=== PATIENT | female | born 1990 | race Two or more races ===

== ENCOUNTER 2025-04-05 19:24 | Emergency (ER) | payer OTHER ==
[~2025-04-05] VITALS: Ht 172.7 cm; Wt 115.9 kg
[~2025-04-05 19:24] MED LIST: ALBU18HF12 IH
[2025-04-05 20:06] LABS: BASOPHILS % (AUTO) 0.8 % (0.0-2.0); EOSINOPHILS % (AUTO) 2.3 % (1.0-6.0); HEMATOCRIT 39.8 % (36-46); HEMOGLOBIN 13.3 g/dL (12.0-16.0); LYMPHOCYTES # (AUTO) 2.4 K/uL (1.0-4.8); LYMPHOCYTES % (AUTO) 35.5 % (22.0-44.0); MEAN CORPUSCULAR HEMOGLOBIN 29.4 pg (26.0-34.0); MEAN CORPUSCULAR HGB CONC 33.3 G/dL (31.0-37.0); MEAN CORPUSCULAR VOLUME 88 fL (80-100); MONOCYTES # (AUTO) 0.6 K/uL (0.1-1.0); MONOCYTES % (AUTO) 9.7 % (2.0-9.0); NEUTROPHILS # (AUTO) 3.4 K/uL (1.8-7.7); NEUTROPHILS % (AUTO) 51.7 % (40.0-70.0); PLATELET COUNT (AUTO) 271 K/uL (150-450); RED BLOOD CELL COUNT(AUTO) 4.51 MIL/uL (4.00-5.20); RED CELL DISTRIBUTION WIDTH 14.7 % (11.5-14.5); WHITE BLOOD COUNT (AUTO) 6.6 K/uL (4.5-11.0)
[2025-04-05 20:11] VITALS: BP 113/71; PULSE 92; RESP 18; TEMP 98.2; O2SAT 100
[2025-04-05 20:17] LABS: ANION GAP 6 mmol/L (8-16); CALCIUM, TOTAL 8.7 mg/dL (8.8-10.5); CARBON DIOXIDE 29 mmol/L (22-29); CHLORIDE 103 mmol/L (98-107); CREATININE 0.64 mg/dL (0.60-1.30); GLOMERULAR FILTR. RATE CALC > 60 mL/min (>60); GLUCOSE,RANDOM 95 mg/dL (70-110); POTASSIUM 3.6 mmol/L (3.5-5.1); SODIUM SERUM 138 mmol/L (136-145); UREA NITROGEN, BLOOD 9 mg/dL (7-18)
[2025-04-05 20:21] LABS: ALBUMIN 3.3 g/dL (3.4-5.0); BILIRUBIN,DIRECT 0.1 mg/dL (0.00-0.20); BILIRUBIN,TOTAL 0.5 mg/dL (0.1-1.0); TOTAL PROTEIN, SERUM 6.9 g/dL (6.4-8.2)
[2025-04-05] MEDS: MAG HYDROX/ALUMINUM HYD/SIMETH 30 ML SUSPENSION UDCUP PO ONE (20:59)
[2025-04-05] MEDS: SODIUM CHLORIDE 0.9% 1,000 ML IV ONE (20:59)
[2025-04-05] MEDS: FAMOTIDINE 20 MG/2 ML VIAL IVP ONE (20:59)
[2025-04-05] MEDS: ONDANSETRON HCL 4 MG/2 ML VIAL IVP ONE (20:59)
[2025-04-05] MEDS ORDERED: ONDA-104 PO (21:11)
== END 2025-04-05 22:09 | disposition home or self-care (01) ==
LOC: EMS 19:24
DX: K52.9 Noninfective gastroenteritis and colitis, unspecified (principal); R11.2 Nausea with vomiting, unspecified; J45.909 Unspecified asthma, uncomplicated; F17.210 Nicotine dependence, cigarettes, uncomplicated
CPT/HCPCS: 99284; 96374; 96361; 96375; 80048; 80076; 83690; 84703; 85025; 36415; J3490; J2405; J7030

== ENCOUNTER 2025-06-01 16:34 | Emergency (ER) | payer OTHER ==
[~2025-06-01] VITALS: Ht 172.7 cm; Wt 113.6 kg
[~2025-06-01 16:34] MED LIST changes: +ONDA-104 PO
[2025-06-01 16:42] VITALS: BP 129/83; PULSE 104; RESP 18; TEMP 97.7; O2SAT 96
[2025-06-01] MEDS ORDERED: BUPR-344 PO (16:49)
[2025-06-01] MEDS ORDERED: ACET-3385 PO (16:49)
[2025-06-01] MEDS ORDERED: IBUP-1493 PO (16:49)
[2025-06-01] MEDS ORDERED: OXCA300T70 PO (16:49)
[2025-06-01] MEDS ORDERED: GABA-1181 PO (16:49)
[2025-06-01] MEDS ORDERED: BUPR-722 PO (17:38)
[2025-06-01] MEDS ORDERED: LIDO700A30 TD (17:38)
[2025-06-01] MEDS ORDERED: NAPR-1196 PO (17:38)
[2025-06-01] MEDS: KETOROLAC TROMETHAMINE 30 MG/ML VIAL IM ONE (17:48)
[2025-06-01] MEDS: GABAPENTIN 300 MG CAPSULE PO ONE (17:51)
== END 2025-06-01 18:05 | disposition home or self-care (01) ==
LOC: EMS 16:35
DX: G89.29 Other chronic pain (principal); M54.9 Dorsalgia, unspecified; J45.909 Unspecified asthma, uncomplicated; F31.9 Bipolar disorder, unspecified; F17.210 Nicotine dependence, cigarettes, uncomplicated; Z79.899 Other long term (current) drug therapy
CPT/HCPCS: 99283; 72100; 96372; J1885